=== PATIENT | female | born 1970 | race Caucasian/White ===

== ENCOUNTER 2017-02-11 14:05 | Emergency (ER) | payer OTHER ==
--- NOTE | ~2017-02-11 | CR127 ---
[facility] A Service of [facility] RADIOLOGY TEXT RESULTS PATIENT: ANDRES KENT LOCATION: [facility] : 70 UNIT #: [id number] AGE: [address]: Fernanda Rice SEX: F ORDER DR: [id number] [facility] [address] [place], [place] [address] [id number] E MR#: [id number] Acc #: [id number] NAME: ANDRES KENT : 1970 SEX: F STUDY DATE/TIME: 02/11/2017 14:41 UNIT: [facility] ROOM: STUDY DESCRIPTION: CR Foot Complete Min 3 View Rt Attending Physician: Fernanda Rice P.A.-C. Ordering Physician: Fernanda Rice P.A.-C. Primary Care Physician: No Primary Care Physician MEDICAL IMAGING REPORT This report is preliminary unless electronic signature is present EXAM Right foot, 02/11/2017, [facility]. HISTORY 46 -year-old woman jumped off porch today, twisting ankle. Right foot and right ankle pain. FINDINGS 3 views of the right foot demonstrate mild hallux valgus deformity. There is no obvious fracture identified, and small joints are preserved. On the lateral view of the foot, there is suggestion of a hairline fracture involving the posterior plantar aspect of the calcaneus. This does not reproduce on the lateral view of the ankle, however. Correlate with point tenderness and consider imaging of the calcaneus. IMPRESSION 1. No definite fracture noted. 2. Incidental hallux valgus deformity. 3. questionable nondisplaced hairline fracture involving posterior plantar aspect of the calcaneus. Correlate with point tenderness and consider follow up imaging of the calcaneus only. Dictated by... Neel Askew M.D. THIS IS AN ELECTRONICALLY VERIFIED REPORT Neel Askew M.D. at 02/12/2017 10:43 AM Caleb TD: 02/11/2017 19:32 JOB #: [id number] [facility] A Service of [facility] RADIOLOGY TEXT RESULTS PATIENT: ANDRES KENT LOCATION: [facility] : 70 UNIT #: [id number] AGE: [address]: Fernanda Rice SEX: F ORDER DR: MEDICAL IMAGING REPORT Page 1 of 1 COPY
--- NOTE | ~2017-02-11 | CR56 ---
[facility] A Service of [facility] RADIOLOGY TEXT RESULTS PATIENT: ANDRES KENT LOCATION: [facility] : 70 UNIT #: [id number] AGE: [address]: Fernanda Rice SEX: F ORDER DR: [id number] [facility] [address] [place], [place] [address] [id number] E MR#: [id number] Acc #: [id number] NAME: ANDRES KENT : 1970 SEX: F STUDY DATE/TIME: 02/11/2017 15:18 UNIT: [facility] ROOM: STUDY DESCRIPTION: CR Calcaneus Min 2 Views Rt Attending Physician: Fernanda Rice P.A.-C. Ordering Physician: Fernanda Rice P.A.-C. Primary Care Physician: No Primary Care Physician MEDICAL IMAGING REPORT This report is preliminary unless electronic signature is present EXAM Right calcaneus. INDICATIONS Right heel pain after jumping off porch today. FINDINGS AP and lateral views of the calcaneus were obtained. On the AP view, there does appear to be a definite fracture involving the medial side of the posterior calcaneus. There may be an oblique fracture line running through the posterior aspect of the calcaneus. This is not visible on the lateral view. IMPRESSION The dedicated calcaneus series does demonstrate a definite fracture posterior medial aspect of the calcaneus on the AP view. It is not visible on the lateral view. There is minimal displacement. Dictated by... Gamal Cadet M.D. THIS IS AN ELECTRONICALLY VERIFIED REPORT Gamal Cadet M.D. at 02/12/2017 7:07 AM GABY/anahi TD: 02/11/2017 20:44 JOB #: [id number] MEDICAL IMAGING REPORT Page 1 of 1 COPY
--- NOTE | ~2017-02-11 | CR21 ---
[facility] A Service of [facility] RADIOLOGY TEXT RESULTS PATIENT: ANDRES KENT LOCATION: [facility] : 70 UNIT #: [id number] AGE: [address]: Fernanda Rice SEX: F ORDER DR: [id number] [facility] [address] [place], [place] [address] [id number] E MR#: [id number] Acc #: [id number] NAME: ANDRES EKNT : 1970 SEX: F STUDY DATE/TIME: 02/11/2017 14:22 UNIT: [facility] ROOM: STUDY DESCRIPTION: CR Ankle Min 3 Views Rt Attending Physician: Fernanda Rice P.A.-C. Ordering Physician: Fernanda Rice P.A.-C. Primary Care Physician: Primary Care Physician No MEDICAL IMAGING REPORT This report is preliminary unless electronic signature is present EXAM Right ankle 02/11/1979 [facility] HISTORY 46-year-old woman right lateral ankle pain and swelling, right heel pain, right foot pain. Patient jumped off porch twisting ankle today. FINDINGS 3 views of the right ankle demonstrate minimal swelling. There is no visible fracture. Ankle mortise is preserved. IMPRESSION Mild soft tissue swelling only. Negative for fracture. Dictated by... Neel Askew M.D. THIS IS AN ELECTRONICALLY VERIFIED REPORT Neel Askew M.D. at 02/12/2017 10:43 AM ELENOB/josé miguel TD: 02/11/2017 19:06 JOB #: [id number] MEDICAL IMAGING REPORT Page 1 of 1 COPY
== END 2017-02-11 16:50 | disposition home or self-care (01) ==
LOC: CED 14:05 → CFTX 14:05
DX: S92.001A Unspecified fracture of right calcaneus, initial encounter for closed fracture (principal); J44.9 Chronic obstructive pulmonary disease, unspecified; F17.210 Nicotine dependence, cigarettes, uncomplicated; W22.8XXA Striking against or struck by other objects, initial encounter; Y92.009 Unspecified place in unspecified non-institutional (private) residence as the place of occurrence of the external cause
CPT/HCPCS: 29515; 73610; 73630; 73650; 99283